=== PATIENT | male | born 1965 | race Caucasian/White ===

== ENCOUNTER 2020-09-23 13:03 | Inpatient (IN) | payer MEDICARE ==
[~2020-09-23] VITALS: Ht 167.6 cm; Wt 90.3 kg
[~2020-09-23 13:03] MED LIST: ASPIRIN CHEWABL81 MG PO; PREDNISONE20 MG PO; ULTRAM50 MG PO
[2020-09-23 13:51] LABS: HEMOGLOBIN 16.5 gm/dl (14.0-17.5); RED BLOOD COUNT 5.16 M/UL (4.20-5.50); WHITE BLOOD COUNT 14.5 K/UL (4.5-11.0)
[2020-09-23 14:22] LABS: BUN/CREATININE RATIO 36 (0-10)
--- NOTE | 2020-09-24 05:48 | NUR ---
MULTIPLE ATTEMPTS HAVE BEEN MADE THROUGHOUT THE NIGHT TO EDUCATE PT ON PROPER INCENTIVE SPIROMETER USE, BUT EACH TIME PT IS EITHER SLEEPING OR PT REFUSES TEACHING AT THAT TIME. WCTM
[2020-09-24 06:07] LABS: HEMOGLOBIN 15.9 gm/dl (14.0-17.5); WHITE BLOOD COUNT 14.7 K/UL (4.5-11.0)
[2020-09-24 07:11] LABS: BUN/CREATININE RATIO 35 (0-10)
--- NOTE | 2020-09-25 03:48 | NUR ---
PT PLACED ON WAFFLE MATTRESS FOR ADDED COMFORT AND TO DECREASE LIKELIHOOD OF SKIN BREAKDOWN R/T PT NOT AMBULATING OR GETTING OUT OF BED AT ALL.
--- NOTE | 2020-09-25 04:05 | NUR ---
FOR THE ENTIRE SHIFT, PT HAS EITHER BEEN SLEEPING OR HAS REFUSED TEACHING ON INCENTIVE SPIROMETER. MULTIPLE ATTEMPTS WERE MADE EACH HOUR FROM 1900 TO 0000 TO TEACH PATIENT ON INCENTIVE SPIROMETER USE AND PT DENIED TEACHING EACH TIME. WCTM AND ATTEMPT TO HAVE PT USE DEVICE.
[2020-09-25 06:27] LABS: RED BLOOD COUNT 5.03 M/UL (4.20-5.50); WHITE BLOOD COUNT 11.5 K/UL (4.5-11.0)
[2020-09-25 07:03] LABS: BUN/CREATININE RATIO 27 (0-10)
[2020-09-26 04:21] LABS: HEMOGLOBIN 16.3 gm/dl (14.0-17.5); RED BLOOD COUNT 5.14 M/UL (4.20-5.50); WHITE BLOOD COUNT 11.2 K/UL (4.5-11.0)
--- NOTE | 2020-09-26 04:43 | NUR ---
MULTIPLE ATTEMPTS EACH HOUR FROM 1900 TO 2300 TO TEACH PATIENT ON INCENTIVE SPIROMETER USE AND PT REFUSED TEACHING EACH TIME. EDUCATION PROVIDED. ISI
[2020-09-26 04:44] LABS: BUN/CREATININE RATIO 24 (0-10)
== END 2020-09-26 18:30 | disposition home or self-care (01) | DRG 963 ==
LOC: ER1 13:03 → M/S 16:44 → ZEROF 16:44 → M/S 16:44
PROVIDERS: Physician Assistant; Physician Assistant Medical; ADMIT Family Medicine
DX: T79.6XXA Traumatic ischemia of muscle, initial encounter (principal); S32.401A Unspecified fracture of right acetabulum, initial encounter for closed fracture; G92 Toxic encephalopathy; N17.9 Acute kidney failure, unspecified; S22.41XA Multiple fractures of ribs, right side, initial encounter for closed fracture; J98.11 Atelectasis; E87.1 Hypo-osmolality and hyponatremia; S62.306A Unspecified fracture of fifth metacarpal bone, right hand, initial encounter for closed fracture; V89.2XXA Person injured in unspecified motor-vehicle accident, traffic, initial encounter; E11.9 Type 2 diabetes mellitus without complications; I25.10 Atherosclerotic heart disease of native coronary artery without angina pectoris; Z95.1 Presence of aortocoronary bypass graft; T14.8XXA Other injury of unspecified body region, initial encounter; R74.01 Elevation of levels of liver transaminase levels; K52.9 Noninfective gastroenteritis and colitis, unspecified; I77.819 Aortic ectasia, unspecified site; F12.10 Cannabis abuse, uncomplicated; Z88.6 Allergy status to analgesic agent; Z88.5 Allergy status to narcotic agent
CPT/HCPCS: 36415; 70450; 71260; 72125; 72128; 72131; 73130; 73502; 74019; 80048; 80053; 80061; 80307; 81001; 82140; 82550; 82553; 82962; 83036; 83605; 83690; 83874; 84484; 85025; 85027; 85730; 93005; 96365; 96375; 97116; 97162; 97165; 99285; G0378; J1644; J1956; J2270; J7030; Q9967; U0002

== ENCOUNTER → 2020-10-01 | Outpatient (CLI) | payer MEDICARE | LOC: US 09:13 | DX: M79.661 Pain in right lower leg (principal) | CPT/HCPCS: 93971 ==

== ENCOUNTER 2021-06-25 20:09 | Emergency (ER) | payer MEDICARE ==
[2021-06-25 20:42] LABS: HEMOGLOBIN 17.4 gm/dl (14.0-17.5); RED BLOOD COUNT 5.42 M/UL (4.20-5.50); WHITE BLOOD COUNT 10.9 K/UL (4.5-11.0)
[2021-06-25 21:12] LABS: BUN/CREATININE RATIO 17 (0-10)
== END 2021-06-25 21:46 | disposition home or self-care (01) ==
LOC: ER1 20:09
PROVIDERS: Physician Assistant
DX: R07.89 Other chest pain (principal); R29.810 Facial weakness; I25.10 Atherosclerotic heart disease of native coronary artery without angina pectoris; E11.9 Type 2 diabetes mellitus without complications; E78.5 Hyperlipidemia, unspecified; Z88.5 Allergy status to narcotic agent; F17.200 Nicotine dependence, unspecified, uncomplicated; Z20.822 Contact with and (suspected) exposure to COVID-19
CPT/HCPCS: 70450; 71045; 80053; 82550; 82553; 83874; 84484; 85025; 93005; 99285; U0002

== ENCOUNTER → 2022-03-30 | Outpatient (CLI) | payer MEDICARE | LOC: CT 16:00 | DX: R51.9 Headache, unspecified (principal) | CPT/HCPCS: 70450 ==